=== PATIENT | male | born 1990 | race Caucasian/White ===

== ENCOUNTER 2018-03-21 19:24 | Emergency (ER) | payer BC ==
[2018-03-21 20:09] VITALS: BP 154/95; PULSE 67; O2SAT 98
[2018-03-21] MEDS ORDERED: Norflex 60 MG/2 ML IM ONE (21:01)
[2018-03-21] MEDS ORDERED: TORAdol 30 mg Injection IM ONE (21:01)
--- NOTE | 2018-03-21 21:06 | ERPHSYRPT ---
- History of Present Illness Time Seen by Provider: 03/21/18 21:03 Source: patient Exam Limitations: no limitations Patient Subjective Stated Complaint: pt is alert and oriented. pt comes in via wheelchair pt has pain upon standing/movement. pt c/o pain in lower back. denies pain shooting down legs. denies injury. no swelling, redness, or discoloration noted. not tender with palpitation. Triage Nursing Assessment: see above Physician History: pt c/o pain in lower back. denies pain shooting down legs. denies injury. no swelling, redness, or discoloration noted. not tender with palpitation. denies any fall or back injury. Timing/Duration: today Method of Injury: unknown Back Pain Location: lumbar spine Severity of Pain-Max: mild Severity of Pain-Current: mild Modifying Factors: Improves With: nothing Associated Symptoms: denies symptoms Allergies/Adverse Reactions: No Known Drug Allergies Allergy (Unverified 07/18/13 14:26) Hx Tetanus, Diphtheria Vaccination/Date Given: Yes Hx Influenza Vaccination/Date Given: No - Review of Systems Constitutional: No Symptoms Eyes: No Symptoms Ears, Nose, & Throat: No Symptoms Respiratory: No Symptoms Cardiac: No Symptoms Abdominal/Gastrointestinal: No Symptoms Genitourinary Symptoms: No Symptoms Musculoskeletal: Back Pain Skin: No Symptoms Neurological: No Symptoms - Past Medical History Pertinent Past Medical History: No Psycho-Social History: Depression - Past Surgical History Past Surgical History: No - Social History Smoking Status: Current every day smoker How long have you smoked: 10 years Exposure to second hand smoke: Yes Drug Use: none Patient Lives Alone: Yes Significant Family History: no pertinent family hx - Nursing Vital Signs Nursing Vital Signs: Initial Vital Signs Temperature 98.7 F 03/21/18 19:25 Pulse Rate 67 03/21/18 19:25 Respiratory Rate 16 03/21/18 19:25 Blood Pressure 154/95 03/21/18 19:25 O2 Sat by Pulse Oximetry 98 03/21/18 19:25 Pain Scale Pain Intensity [] 10 Pain Intensity 10 - Physical Exam General Appearance: no apparent distress Eye Exam: PERRL/EOMI Ears, Nose, Throat Exam: normal ENT inspection Neck Exam: normal inspection Respiratory Exam: normal breath sounds Cardiovascular Exam: regular rate/rhythm Gastrointestinal Exam: soft Back Exam: decreased range of motion, muscle spasm (right side), No vertebral tenderness, No point tenderness SpO2: 98 Oxygen Delivery: Room Air - Course Nursing assessment & vital signs reviewed: Yes - Radiology Exams L-Spine X-ray Interpretation: Reviewed by me, Negative, No Fracture Ordered Tests: Active Orders 24 hr Category Date Time Status LUMBAR LIMITED (2 OR 3 VIEWS) Stat Exams 03/21/18 21:01 Taken Medication Summary Discontinued Medications Generic Name Dose Route Start Last Admin Trade Name Jak PRN Reason Stop Dose Admin Ketorolac Tromethamine 60 mg 03/21/18 21:01 Toradol 30 Mg Injection IM 03/21/18 21:02 STAT ONE Ketorolac Tromethamine Confirm 03/21/18 21:22 Toradol 30 Mg Injection Administered 03/21/18 21:23 Dose 60 mg .ROUTE .STK-MED ONE Orphenadrine Citrate 60 mg 03/21/18 21:01 Norflex 60 Mg/2 Ml IM 03/21/18 21:02 STAT ONE Orphenadrine Citrate Confirm 03/21/18 21:22 Norflex 60 Mg/2 Ml Administered 03/21/18 21:23 Dose 60 mg .ROUTE .STK-MED ONE - Progress Progress: improved Counseled pt/family regarding: diagnosis, need for follow-up, rad results - Departure Time of Disposition: 21:27 Departure Disposition: Home Clinical Impression: Sciatica of right side Condition: Stable Critical Care Time: No Referrals: CHERRY ROMERO MD [Primary Care Provider] - Instructions: Low Back Pain (DC), Sciatica (DC) Additional Instructions: BACK INJURY 1. May apply moist heat frequently for relief of pain. Take care not to burn the skin. Do not use heat for more than 30 minutes at a time. 2. Try to sleep on a firm bed, flat on your back. 3. If no improvement is noticed in 2-3 days, follow up with your family physician. 4. If you notice any numbness, tingling, weakness, or problems with your bowel or bladder, you should call your family physician or return to the emergency department. MORRISGIOVANNYOMAR BURNSXAVIER was seen on 03/21/18 n the Emergency Room. At that time you were treated for an emergent condition, during your visit Laboratory, Radiology and/or other procedures may have been ordered. It is very important that you follow-up with your Primary Care Physician CHERRY ROMERO within the next 24- 48 hours to review your Emergency Room visit and the final results of testing that was ordered. Some test results such as Urine Cultures, Blood Cultures, and other cultures if ordered will not be finalized for 24-48 hours. If you do not have a Primary Care Provider please call the medical records department at [phone] ext [phone] to obtain a copy of your results or you may sign into our patient portal to obtain these results by visiting us @ [email or web address] and completing the following steps: 1. Click on the Patient Portal link 2. Click the Patient Self Enrollment Link to complete the enrollment form and entering your 3. Once the enrollment form is completed you will receive an email with a temporary ID and password at the email address you provided. 4. Next choose a user name and password. Your user name must be at least 4 characters long and your password must be at least 4 characters long. 5. Choose a security question from the list and provide your answer to the question. If you already have signed into the Health Portal you may access your Health Care Information 29/10 by the following steps: 1. Login to our website @ [email or web address] 2. Enter your original user name and password. FAQS The [facility] Health Portal is an online tool that contains your Lab Results, Radiology Reports, Visit History, Discharge Instructions and Health Summary Lab and Radiology Results will not be available for 72 hours on the portal. The Portal is a secure site, passwords are encryted and URLs are re-written so they cannot be copied and pasted. You and authorized family members are the only ones who can access your Portal. Also there is a timeout feature that protects your information if you leave the Portal page open. If you have technical difficulty please use the Contact Us link on the page this will allow you to submit any questions you have regarding the Portal or you may contact the Medical Record Department at [phone]. Prescriptions: Naproxen 375 mg [Naprosyn 375 mg] 375 mg PO Q8H #30 tablet Orphenadrine Citrate 100 mg [Norflex 100 MG Tablet] 100 mg PO BID #20 tab
[2018-03-21] MEDS ORDERED: TORAdol 30 mg Injection ONE (21:22)
[2018-03-21] MEDS ORDERED: Norflex 60 MG/2 ML ONE (21:22)
--- NOTE | 2018-03-22 08:32 | XRAY ---
Indication: Right low back pain. Comparison: None 3 views of the lumbar spine demonstrates 5 lumbar vertebral segments in normal alignment with vertebral body heights and disc spaces maintained. No acute fracture, subluxation, or suspicious bony lesions. Incidental 9 mm right renal calculus better evaluated with CT if clinically warranted.
== END 2018-03-21 21:50 | disposition home or self-care (01) ==
LOC: ED 19:24
DX: M54.41 Lumbago with sciatica, right side (principal); M62.830 Muscle spasm of back
CPT/HCPCS: 72100; 96372; 99284; J1885; J2360

== ENCOUNTER 2024-06-17 13:53 | Emergency (ER) | payer BC, OTHER ==
[2024-06-17 14:10] VITALS: TEMP 97.5; O2SAT 97
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
[2024-06-17 15:57] VITALS: BP 127/58; PULSE 68; RESP 18
== END 2024-06-17 15:58 | disposition home or self-care (01) ==
LOC: ED 13:53
DX: S80.211A Abrasion, right knee, initial encounter (principal); S80.812A Abrasion, left lower leg, initial encounter; S20.319A Abrasion of unspecified front wall of thorax, initial encounter; S40.812A Abrasion of left upper arm, initial encounter; S40.811A Abrasion of right upper arm, initial encounter; W22.8XXA Striking against or struck by other objects, initial encounter; Y93.19 Activity, other involving water and watercraft; Y92.69 Other specified industrial and construction area as the place of occurrence of the external cause; Y99.0 Civilian activity done for income or pay; I10 Essential (primary) hypertension; Z79.899 Other long term (current) drug therapy
CPT/HCPCS: 69210; 71046; 99283